=== PATIENT | male | born 1970 | race Caucasian/White ===

== ENCOUNTER 2023-03-19 12:34 | Emergency (ER) | payer SELFPAY ==
[~2023-03-19] VITALS: Ht 170.2 cm; Wt 71.0 kg
[2023-03-19 12:54] VITALS: BP 127/86; PULSE 67; RESP 16; TEMP 98.4; O2SAT 100
[2023-03-19] MEDS ORDERED: DICYCLOMINE 10 MG/5 ML ORAL SYR PO STA (13:01)
[2023-03-19] MEDS ORDERED: MAGNESIUM/ALUMINUM HYDROXIDE/SIMETHICONE 30ML UDC PO STA (13:01)
[2023-03-19] MEDS ORDERED: ONDANSETRON HCL 4MG/2ML INJ IV STA (13:01)
[2023-03-19] MEDS ORDERED: PANTOPRAZOLE SODIUM 40 MG/VIAL IV ONE (13:15)
[2023-03-19] MEDS ORDERED: SODIUM CHLORIDE 0.9% 1,000 ML IV ONE (13:15)
[2023-03-19] MEDS ORDERED: KETOROLAC 15MG/ML VIAL IV ONE (13:15)
[2023-03-19 13:41] LABS: BASOPHILS % 0.3 % (0.0-2.0); EOSINOPHILS % 0.1 % (0.0-5.0); HEMATOCRIT. 47.2 % (42.0-52.0); HEMOGLOBIN. 16.2 g/dL (14.0-18.0); MEAN CORPUSCULAR HEMOGLOBIN 31.3 pg (28.0-32.0); MEAN CORPUSCULAR HGB CONC 34.3 g/dL (31.0-37.0); MEAN CORPUSCULAR VOLUME 91.3 fL (80.0-94.0); MEAN PLATELET VOLUME 8.5 fl (7.4-10.4); NEUTROPHILS % 70.6 % (40.0-76.0); PLATELET 200 x1000/uL (130-400); RED BLOOD CELL COUNT 5.17 mill/uL (4.7-6.1); RED CELL DISTRIBUTION WIDTH 12.9 % (11.6-14.6); WHITE BLOOD COUNT 9.2 x1000/uL (4.5-11.0)
[2023-03-19 13:48] LABS: PROTHROMBIN TIME 10.8 sec (9.6-11.0)
[2023-03-19 14:34] LABS: ALANINE AMINOTRANSFERASE 33 IU/L (10-49); ALBUMIN 4.3 g/dL (3.2-4.8); ASPARTATE AMINOTRANSFERASE 46 IU/L (<34); BILIRUBIN TOTAL 1.4 mg/dL (0.1-1.0); CALCIUM 8.9 mg/dL (8.7-10.4); CARBON DIOXIDE 31 mEq/L (21-32); CHLORIDE 99 mEq/L (98-107); CREATININE 0.8 mg/dL (0.6-1.3); GLUCOSE 127 mg/dL (70-105); PROTEIN TOTAL 7.1 g/dL (6.0-8.3); SODIUM 141 mEq/L (136-145); UREA NITROGEN BLOOD 6 mg/dL (9-23)
[2023-03-19 14:38] LABS: ACETAMINOPHEN < 2 ug/mL (10-30); ETHANOL BLOOD 201 mg/dL (<10)
[2023-03-19 14:46] LABS: LACTIC ACID 2.7 mmol/L (0.4-2.0)
[2023-03-19 15:10] LABS: POTASSIUM 2.8 mEq/L (3.5-5.1)
[2023-03-19] MEDS ORDERED: POTASSIUM CHLORIDE 20MEQ TABLET SR PO NR (16:15)
== END 2023-03-19 21:21 | disposition home or self-care (01) ==
LOC: ER 12:44
DX: F10.10 Alcohol abuse, uncomplicated (principal); I10 Essential (primary) hypertension; Y90.7 Blood alcohol level of 200-239 mg/100 ml
CPT/HCPCS: 80053; 80307; 80320; 83605; 83690; 85025; 85610; 36415; 99283; J7030; G0480

== ENCOUNTER 2024-02-12 17:27 | Emergency (ER) | payer SELFPAY ==
[~2024-02-12] VITALS: Ht 177.8 cm; Wt 80.0 kg
[2024-02-12 17:28] VITALS: TEMP 97.4; O2SAT 99
[2024-02-12 20:26] LABS: BASOPHILS % 0.3 % (0.0-2.0); HEMATOCRIT. 47.9 % (42.0-52.0); HEMOGLOBIN. 16.5 g/dL (14.0-18.0); LYMPHOCYTES % 7.2 % (20.0-50.0); MEAN CORPUSCULAR HGB CONC 34.4 g/dL (31.0-37.0); MEAN PLATELET VOLUME 8.3 fl (7.4-10.4); MONOCYTES % 3.1 % (2.0-8.0); NEUTROPHILS % 89.4 % (40.0-76.0); PLATELET 172 x1000/uL (130-400); RED BLOOD CELL COUNT 5.15 mill/uL (4.7-6.1); RED CELL DISTRIBUTION WIDTH 13.5 % (11.6-14.6); WHITE BLOOD COUNT 14.5 x1000/uL (4.5-11.0)
[2024-02-12 20:27] LABS: CHLORIDE 108 mEq/L (98-107); POTASSIUM 3.9 mEq/L (3.5-5.1); SODIUM 144 mEq/L (136-145)
[2024-02-12 20:28] LABS: CARBON DIOXIDE 21 mEq/L (21-32)
[2024-02-12 20:32] LABS: DIFFERENTIAL COMMENT 1
[2024-02-12 20:33] LABS: GLUCOSE 97 mg/dL (70-105); UREA NITROGEN BLOOD 16 mg/dL (9-23)
[2024-02-12 22:15] VITALS: BP 110/70; PULSE 68; RESP 12; O2SAT 99
== END 2024-02-12 21:49 | disposition home or self-care (01) ==
LOC: ER 17:27
DX: F10.129 Alcohol abuse with intoxication, unspecified (principal); Y90.9 Presence of alcohol in blood, level not specified
CPT/HCPCS: 36415; 80048; 82962; 85025; 99283

== ENCOUNTER 2024-10-17 09:27 | Emergency (ER) | payer MEDICAID ==
[~2024-10-17] VITALS: Ht 175.3 cm; Wt 72.0 kg
[2024-10-17 09:30] VITALS: TEMP 36.8; O2SAT 96
[2024-10-17 09:52] LABS: BASOPHILS % 0.5 % (0.0-2.0); HEMATOCRIT. 40.8 % (42.0-52.0); HEMOGLOBIN. 14.1 g/dL (14.0-18.0); LYMPHOCYTES % 18.2 % (20.0-50.0); MEAN CORPUSCULAR HEMOGLOBIN 30.3 pg (28.0-32.0); MEAN CORPUSCULAR HGB CONC 34.5 g/dL (31.0-37.0); MEAN PLATELET VOLUME 8.5 fl (7.4-10.4); MONOCYTES % 7.5 % (2.0-8.0); NEUTROPHILS % 73.8 % (40.0-76.0); PLATELET 119 x1000/uL (130-400); RED BLOOD CELL COUNT 4.64 mill/uL (4.7-6.1); RED CELL DISTRIBUTION WIDTH 13.8 % (11.6-14.6); WHITE BLOOD COUNT 5.4 x1000/uL (4.5-11.0)
[2024-10-17 10:08] LABS: CHLORIDE 96 mEq/L (98-107); POTASSIUM 2.9 mEq/L (3.5-5.1); SODIUM 141 mEq/L (136-145)
[2024-10-17 10:09] LABS: CARBON DIOXIDE 24 mEq/L (21-32)
[2024-10-17 10:10] LABS: CALCIUM 8.6 mg/dL (8.7-10.4)
[2024-10-17 10:14] LABS: CREATININE 0.7 mg/dL (0.6-1.3); GLUCOSE 105 mg/dL (70-105)
[2024-10-17 10:15] LABS: ETHANOL BLOOD 291 mg/dL (<10); UREA NITROGEN BLOOD 11 mg/dL (9-23)
[2024-10-17 11:48] VITALS: BP 138/72; PULSE 96; RESP 16; O2SAT 99
== END 2024-10-17 11:50 | disposition left against medical advice (07) ==
LOC: ER 09:27 → EDBEDREQ 10:42 → ER 11:50
DX: I62.9 Nontraumatic intracranial hemorrhage, unspecified (principal); F10.129 Alcohol abuse with intoxication, unspecified; Y90.8 Blood alcohol level of 240 mg/100 ml or more
CPT/HCPCS: 36415; 80048; 80320; 85025; 99291; G0480